=== PATIENT | female | born 1970 | race Two or more races ===

== ENCOUNTER 2016-07-02 11:58 | Emergency (ER) | payer OTHER ==
[2016-07-02 12:36] VITALS: BP 141/92; PULSE 92; RESP 18; TEMP 98.2; O2SAT 97
[2016-07-02] MEDS ORDERED: IBUPROFEN 600 MG TAB PO ONE ×2 (12:36→12:38)
[2016-07-02] MEDS ORDERED: CYCLOBENZAPRINE 10 MG TAB PO ONE (12:55)
[2016-07-02] MEDS ORDERED: HYDROCODONE/APAP 5/325 TAB PO ONE (12:56)
--- NOTE | 2016-07-02 13:01 | UCPHY ---
H & P Time Seen by Provider: 07/02/16 12:37 Patient Type: New HPI/ROS: HPI Back and leg pain. 45-year-old female. History of a bulging disc at L4-L5. Presents with worsening pain in the right buttock with radiation down to the right anterior ankle since earlier today. She has a friend who is a physical therapist. She was given a lidocaine patch over her lumbar spine. She reports no relief from this. She has had this pain on and off for months but never as bad as this. She denies any bowel or bladder incontinence. No fever. No loss of sensation loss of motor function in her lower extremities. No history of malignancy or IV drug use. ROS: Constitutional: No fever, no chills. No weakness. Eyes: No discharge. No changes in vision. ENT: No sore throat. No nasal congestion or rhinorrhea. Respiratory: No cough. No shortness of breath. Cardiac: No chest pain, no palpitations. Gastrointestinal: No abdominal pain, no vomiting, no diarrhea. Genitourinary: No hematuria. No dysuria or increased frequency with urination. Musculoskeletal: As above. No neck pain. No myalgias or arthralgias. Skin: No rashes. Neurological: No headache. No focal weakness or altered sensation. Past medical history: As above. Social history: Here with her . Physical Exam: General Appearance: Alert, she appears uncomfortable. This patient is responding to questions appropriately and in full sentences. This patient appears well-hydrated and well-nourished. Eyes: Pupils equal and round no pallor or injection. No lid edema, erythema or injection. Lower back exam: Lidocaine patches over the mid lumbar sacral spine. She does not have any midline thoracic, lumbar, sacral tenderness on palpation. Vague tenderness on palpation of the right upper buttock area. No soft tissue swelling, erythema, ecchymosis or other changes to this area noted. She is neurologically intact in all myotomes in dermatomes of the bilateral lower extremities. She has good capillary refill in all of her toes in the right foot. Gastrointestinal: Abdomen is soft and nontender, no masses, bowel sounds normal. No focal tenderness at McBurney's point. No Manuel sign. Neurological: Motor sensory function is grossly intact. Cranial nerves are normal. Gait is normal. Skin: Warm and dry, no rashes. Musculoskeletal: As above. Extremities are symmetrical. All joints range without pain or impingement. Database: EKG: Imaging: Procedures: Emergency department course: After my evaluation, explained to the patient that she required an MRI of her lumbar sacral spine as well as urgent neurosurgical follow-up. I discussed follow-up with Dr. Alcaraz or 1 of his partners. She will be given their contact information. Acutely for pain control she was given 10 mg of Flexeril orally into Vicodin. She did have some relief from this medication. Plan is to send her home with her with prescriptions for these medications and instructions for urgent follow-up with a neuro helpdesk specialist for further management. She is in agreement. Return to Urgent Care precautions were discussed with her in detail. All of her questions were answered. She was discharged with her in good condition. Differential Diagnosis: The differential diagnosis on this patient includes but is not limited to L5 radiculopathy, sciatica. Epidural compression syndrome, cauda equina syndrome, epidural abscess, AAA, right lower extremity DVT unlikely. This represents a partial list of diagnoses considered. These considerations are based on history , physical exam, past history and reassessment. Smoking Status: Never smoked Constitutional: Initial Vital Signs Temperature (C) 36.8 C 07/02/16 12:30 Heart Rate 92 07/02/16 12:30 Respiratory Rate 18 07/02/16 12:30 Blood Pressure 141/92 H 07/02/16 12:30 O2 Sat (%) 97 07/02/16 12:30 O2 Delivery Mode Room Air Allergies/Adverse Reactions: No Known Allergies Allergy (Unverified 07/02/16 12:29) Home Medications: Medication Instructions Recorded Cyclobenzaprine [Flexeril 10 MG 10 mg PO TID #12 tab 07/02/16 (*)] Docusate Sodium [Colace 100 MG (*)] 100 mg PO TID #20 cap 07/02/16 Hydrocodone/APAP 5/325 [[place] 1 - 2 tab PO Q4-6PRN PRN #20 tab 07/02/16 5/325 (*)] MDM/Departure - MDM Medications Given: Discontinued Medications Ibuprofen (Motrin) 600 mg PO EDNOW ONE Stop: 07/02/16 12:39 Last Admin: 07/02/16 12:40 Dose: 600 mg - Depart Disposition: Home, Routine, Self-Care Clinical Impression: Lumbosacral radiculopathy at L5, Sciatica Condition: Good Instructions: Lumbar Radiculopathy (ED) Additional Instructions: Read and follow provided instructions. Follow-up with Dr. Alcaraz or 1 of his partners in 1-2 days for re- evaluation, MRI of your lumbar sacral spine and further management. Take medication as prescribed. Ibuprofen dosin mg every 6 hours with meals for the next 3 days only. [place]/Percocet dosin-2 every 4-6 hours for [address] Do not drive on this medication. Most importantly, return to the emergency department for worsening pain, loss of sensation or weakness in your lower extremities, bowel or bladder incontinence or other serious concerns. Prescriptions: Docusate Sodium [Colace 100 MG (*)] 100 mg PO TID #20 cap Cyclobenzaprine [Flexeril 10 MG (*)] 10 mg PO TID #12 tab Hydrocodone/APAP 5/325 [[place] 5/325 (*)] 1 - 2 tab PO Q4-6PRN PRN #20 tab PRN Reason: Pain, Moderate Referrals: Ritesh Alcaraz MD [Medical Doctor] - As per Instructions Ashley Bello MD [Medical Doctor] - As per Instructions - PQRS PQRS Measurement: 134: Depression screening and followup, PRIME MD-PHQ2 (12 years and older) Over the last 2 weeks, how often have you been bothered by any of the following problems? 1. Feeling down, depressed, or hopeless? 2. Little interest or pleasure in doing things? Answered no to both questions. 130: Documentation of medications. Reviewed all patient medications, doses, route and frequency. 226: Do you smoke? No. 47: 65 and older: Advanced care planning. Patient designates surrogate decision maker as spouse. 51: 18 years old and older with diagnosis of COPD, spirometry performance. NA 52: 18 years old and older with COPD and symptoms of COPD or FEV1<60% predicted prescribed a B Agonist. NA
== END 2016-07-02 13:23 | disposition home or self-care (01) ==
LOC: CED 11:58
DX: M54.41 Lumbago with sciatica, right side (principal)
CPT/HCPCS: 99203-PO; G0463-PO

== ENCOUNTER → 2018-06-20 | Outpatient (CLI) | payer OTHER | LOC: BMCIMAGING 15:18 | PROVIDERS: ATTEND Family Medicine | DX: R05 Cough (principal) ==